=== PATIENT | female | born 1995 | race Two or more races ===

== ENCOUNTER 2018-01-17 15:10 | Emergency (ER) | payer SELFPAY ==
[2018-01-17 15:15] VITALS: BP 125/65; PULSE 80; TEMP 98; BMI 25.8
--- NOTE | 2018-01-17 15:48 | PDOC ---
History of Present Illness - General Chief Complaint: Pain Stated Complaint: WRIST PAIN Time Seen by Provider: 01/17/18 15:37 - History of Present Illness Initial Comments: 22-year-old female presents for atraumatic onset of right wrist pain 3 weeks. She has no comorbidities. 01/17/18 15:46 Past History - Past Medical History Allergies/Adverse Reactions: Allergies Allergy/AdvReac Type Severity Reaction Status Date / Time No Known Allergies Allergy Verified 01/17/18 15:15 Home Medications: Ambulatory Orders NK [No Known Home Medication] 01/17/18 COPD: No - Suicide/Smoking/Psychosocial Hx Smoking History: Never smoked Review of Systems - Review of Systems Musculoskeletal: Yes: See HPI, Joint Pain All Other Systems: Reviewed and Negative *Physical Exam - Vital Signs Last Vital Signs Temp Pulse Resp BP Pulse Ox 98 F 80 18 125/65 99 01/17/18 15:13 01/17/18 15:13 01/17/18 15:13 01/17/18 15:13 01/17/18 15:13 - Physical Exam Comments: Right wrist skin color and temperature are normal range of motion is full and nonpainful. Tailer In strength is slightly decreased. Tenderness at the radial styloid. She has a positive Marielle maneuver. She has no gross sensorimotor deficits she is neurovascularly intact. Left wrist exam is normal 01/17/18 15:47 *DC/Admit/Observation/Transfer Diagnosis at time of Disposition: Tenosynovitis, de Quervain - Discharge Dispostion Disposition: HOME Condition at time of disposition: Stable Decision to Admit order: No - Referrals Referrals: Florin Flores MD [Staff Physician] - - Patient Instructions Additional Instructions: He may purchase a splint fear right wrist called a thumb spica splint. He may take a short course 5 days of Motrin 600 mg 3 times a day with food. Discontinue that medication of bothers her stomach. Return to the emergency room should symptoms worsen or go unresolved. Follow-up with hand surgery in 2- 3 days for further evaluation and treatment options. - Post Discharge Activity
== END 2018-01-17 15:54 | disposition home or self-care (01) ==
LOC: JERFT 15:10
DX: M65.4 Radial styloid tenosynovitis [de Quervain] (principal)
CPT/HCPCS: 99281-25